=== PATIENT | male | born 1980 | race Caucasian/White ===

== ENCOUNTER → 2021-02-01 16:22 | Outpatient (CLI) | payer OTHER, BC, SELFPAY ==
--- NOTE | ~2021-02-01 | XR_ITS ---
XR knee RT min 4V 02/01/2021 18:26 Indication: Right knee pain Procedure: 4 views right knee Comparison: No prior studies Findings: No fracture, subluxation or dislocation. There is anatomic alignment. No significant joint effusion. Impression: 1: No significant bone or joint abnormality. Reviewed, dictated and finalized at location A. Impression: 1: No significant bone or joint abnormality.
== END ==
PROVIDERS: PCP Family Medicine; Visit Provider Physician Assistant
DX: M25.561 Pain in right knee (principal)
CPT/HCPCS: 73564

== ENCOUNTER 2023-04-24 12:31 | Emergency (ER) | payer OTHER, SELFPAY ==
--- NOTE | ~2023-04-24 | CT_ITS ---
EXAMINATION: CT brain wo con DATE: 04/24/2023 13:03 INDICATION: Patient fell off of truck, striking the back of the head. Loss of consciousness. Abrasion at the back of the head. TECHNIQUE: Computed tomography (CT) of the head was performed without intravenous contrast. The mA wa s adjusted according to patient size. Iterative reconstruction technique was employed. Exam dose: 60 5.33 mGy-cm total exam DLP. COMPARISON: None FINDINGS: High posterior midline small cephalohematoma is noted. No skull fracture is detected. No intracranial mass lesion or hemorrhage or cerebrovascular accident. No midline shift or mass effec t. Normal ventricular size. Normal rose-white matter differentiation. No subdural or epidural hematom a. Included mastoid air cells and paranasal sinuses are normally developed and aerated. IMPRESSION: High posterior midline small cephalohematoma; no skull fracture or acute intracranial fi nding Reviewed, dictated and finalized at Location A. Reviewed, dictated and finalized at location B. EL ARCHITECT IMPRESSION: High posterior midline small cephalohematoma; no skull fracture or acute intracranial finding
--- NOTE | ~2023-04-24 | CT_ITS ---
EXAMINATION: CT cervical spine wo con DATE: 04/24/2023 13:04 INDICATION: Head injury. Loss of consciousness. TECHNIQUE: Computed tomography (CT) of the cervical spine was performed without intravenous contrast. Automated exposure control and iterative reconstruction technique were employed. Exam dose: 419.66 mGy-cm total exam DLP. COMPARISON: None FINDINGS: C1 and C2 are normally aligned and the odontoid process is intact. No fracture or dislocati on or locked facet or prevertebral soft tissue swelling. Cervical interspaces are preserved. There is minimal degenerative spurring of the cervical spine.. IMPRESSION: Minimal cervical spine degenerative spurring; no fracture or dislocation or locked facet Reviewed, dictated and finalized at Location A. Reviewed, dictated and finalized at location B. BARBER IMPRESSION: Minimal cervical spine degenerative spurring; no fracture or dislo cation or locked facet
[2023-04-24 12:41] VITALS: BP 135/90; PULSE 78; RESP 18; TEMP 37.1; O2SAT 100
--- NOTE | 2023-04-24 12:52 | ED.GENADULT ---
HPI - General Adult General Chief complaint: Head Injury Stated complaint: head injury Time Seen by Provider: 04/24/23 12:42 History of Present Illness HPI narrative: Patient is a 42-year-old male who presents to the emergency department this afternoon after slip and fall resulting in head injury. Patient states that he was moving furniture into the back of a truck and when he jumped on the truck his foot slipped and he fell backward landing on the ground hitting his head. Patient is unsure if he lost consciousness or not, however, on the right to the emergency department states that there are certain parts of the incident where he does not remember. Patient denies any chest pain, shortness of breath, nausea, vomiting, abdominal pain, dysuria, hematuria, constipation, diarrhea, melena, hematochezia, fevers or chills. Patient also denies any current headaches, dizziness, lightheadedness, blurry visions, focal weakness, numbness and or tingling. There are no other modifying, alleviating, or precipitating factors at this time. Related Data Home Medications Medication Instructions Recorded Confirmed No Home Medications 02/01/21 02/03/21 Allergies Allergy/AdvReac Type Severity Reaction Status Date / Time codeine Allergy Unknown Unknown Verified 02/01/21 15:38 Review of Systems Review of Systems: All systems are reviewed and are negative unless stated otherwise in the HPI. [facility] Family History Family History Father Family history of heart disease in male family member before age 55 Other Diabetes mellitus Social History Social History (Updated 02/01/21 @ 15:39 by Merissa [facility]) Smoking status: Never smoker Alcohol intake: never Exam Narrative: General: Alert, awake, afebrile, in no acute distress. HEENT: PERRL, no rhinorrhea, no post nasal drip, oropharynx clear, contusion to the back of the head with small abrasion. Neck: Trachea midline, no JVD, no lymphadenopathy, no midline cervical tenderness to palpation. Cardiovascular: Regular rate and rhythm, no murmurs, rubs or gallops, no peripheral edema. Respiratory: Clear to auscultation bilaterally, no tachypnea, no wheezing, no rhonchi, no rubs, no respiratory distress. Abdomen: Soft, nontender, nondistended, no rebound, no guarding, no peritoneal signs. Musculoskeletal: No joint swelling or deformity, normal muscle tone. Skin: No rashes or petechia, no signs of infection. Psychiatric: Alert and oriented, normal behavior and judgment for situation. Neurological: Alert and oriented to person, place, and time. Follows all commands. 5/5 motor strength bilateral upper and lower extremities, sensation intact bilateral upper and lower extremity, cranial nerves 2 through 12 grossly intact, no focal deficits, speech is clear and fluent. Course Vital Signs Vital signs: Vital Signs Temperature 98.7 F 04/24/23 12:41 Pulse Rate 78 04/24/23 12:41 Respiratory Rate 18 04/24/23 12:41 Blood Pressure 135/90 04/24/23 12:41 Pulse Oximetry 100 04/24/23 12:41 Oxygen Delivery Room Air 04/24/23 12:41 Temperature 98.7 F 04/24/23 12:41 Pulse Rate 65 04/24/23 13:19 Respiratory Rate 17 04/24/23 13:19 Blood Pressure 132/84 04/24/23 13:19 Pulse Oximetry 100 04/24/23 13:19 Oxygen Delivery Room Air 04/24/23 12:41 Medical Decision Making MDM Narrative Medical decision making narrative: The patient was evaluated by myself in the emergency department. History is obtained from patient who is an independent historian and who is present at bedside and physical exam was performed. External medical records were reviewed at this time. IV was established and pertinent tests were ordered. Imaging studies obtained included CT brain cervical spine without IV contrast which was independently interpreted by me revealing no acute process, which is pending final rad
--- NOTE | 2023-04-24 12:57 | PC.NURSE ---
Pt taken to CT at this time
--- NOTE | 2023-04-24 13:13 | PC.NURSE ---
pt returned to room 2
[2023-04-24 13:19] VITALS: BP 132/84; PULSE 65; RESP 17; O2SAT 100
[2023-04-24 13:39] VITALS: BP 141/91; PULSE 70; RESP 18; O2SAT 100
== END 2023-04-24 14:05 | disposition home or self-care (01) ==
PROVIDERS: Emergency Provider Emergency Medicine; PCP Family Medicine
DX: S06.0XAA Concussion with loss of consciousness status unknown, initial encounter (principal); V58.4XXA Person boarding or alighting a pick-up truck or van injured in noncollision transport accident, initial encounter
CPT/HCPCS: 70450; 72125; 99284; L0140

== ENCOUNTER 2024-07-31 13:06 | Emergency (ER) | payer OTHER, SELFPAY ==
[2024-07-31 13:18] VITALS: BP 115/67; PULSE 60; RESP 16; TEMP 36.6; O2SAT 100
--- NOTE | 2024-07-31 13:33 | ED_ITS ---
HPI - URI/Sore Throat General Chief Complaint: Upper Respiratory Infection Stated Complaint: SORE THROAT Time Seen by Provider: 07/31/24 13:33 Source: patient and RN notes reviewed Mode of arrival: ambulatory Limitations: no limitations History of Present Illness HPI Narrative: 43-year-old male presents with concern for sore throat. Reports symptoms started 1 week ago. He denies runny nose, stuffy nose, cough, fever, body aches, chills, sweats, headache, stomach ache. MD elicited complaint: sore throat Related Data Allergies Allergy/AdvReac Type Severity Reaction Status Date / Time codeine Allergy Unknown Unknown Verified 07/31/24 13:19 Review of Systems Review of Systems: CONSTITUTIONAL: Denies malaise, chills, sweats, or fever. EYES: Denies visual changes, redness, or discharge. ENT: Denies rhinorrhea, congestion, sinus pain, otalgia. Reports sore throat. CARDIOVASCULAR: Denies chest pain, palpitations, or edema. RESPIRATORY: Denies cough. Denies dyspnea. GASTROINTESTINAL: Denies abdominal pain, nausea, vomiting, diarrhea SKIN: Denies rash or itching. MUSCULOSKELETAL: Denies myalgia. NEUROLOGIC: Denies headache. All systems reviewed & are unremarkable except as noted in HPI and below PMFSH Family History Family History Father Family history of heart disease in male family member before age 55 Other Diabetes mellitus Social History Social History (Updated 04/30/23 @ 09:41 by Chantel Flores MA) Smoking status: Never smoker Alcohol intake: never Substance use: never Substance use type: marijuana Comments At time of signature, agree with nursing past medical, surgical, social and family history. There is no relevant family history pertinent to the presenting complaint Exam Narrative: GENERAL: Well-appearing, well-nourished, and in no acute distress. HEAD: Normocephalic EYES: PERRLA, conjunctivae clear ENT: Nares clear. Mucous membranes moist. TM pearly rose with sharp light reflex bilaterally; no tragal tenderness. Oropharynx erythematous without lesions. Tonsils not enlarged and without exudate, no drooling, no hoarseness, no trismus, uvula midline. NECK: Supple. No lymphadenopathy CHEST: Clear to auscultation, breath sounds equal. No wheezing, rhonchi, rales, or stridor. No respiratory distress, speaks in full sentences. HEART: Regular rate and rhythm. No murmur heard. SKIN: Warm, dry, no rash. NEURO: Alert and oriented x3. PSYCH: Normal mood and affect Course Course Emergency Course: Patient is aware of diagnosis, understands and agrees to treatment plan. Anticipatory guidance given. Patient agrees to follow-up as directed and is aware of reasons to seek care at the emergency department. Portions of this record may have been created with voice recognition software Level of Care: Express Care Visit Vital Signs Vital signs: Vital Signs Temperature 97.8 F 07/31/24 13:18 Pulse Rate 60 07/31/24 13:18 Respiratory Rate 16 07/31/24 13:18 Blood Pressure 115/67 07/31/24 13:18 Pulse Oximetry 100 07/31/24 13:18 Temperature 97.8 F 07/31/24 13:18 Pulse Rate 60 07/31/24 13:18 Respiratory Rate 16 07/31/24 13:18 Blood Pressure 115/67 07/31/24 13:18 Pulse Oximetry 100 07/31/24 13:18 Reviewed. MDM - URI/Sore Throat MDM Narrative Medical decision making narrative: Differential diagnosis considered: Peterson virus, strep pharyngitis, allergic rhinitis, upper respiratory tract infection, sinusitis, rhinosinusitis, nasopharyngitis. viral pharyngitis, otitis media, otitis externa, pneumonia, bronchitis, viral cough syndrome, viral syndrome, and influenza. Exam findings show no acute concerns or changes; patient is non-toxic appearing and is in no distress. Patient is appropriate for outpatient treatment and follow-up. Lab Data Attestation: I reviewed the patient's lab results. Critical Care Time Critical Care Time Critical Care Time: No Discharge Plan Discharge Clinical Impression: Acute streptococcal pharyngitis Patient Disposition: Home Condition: Stable Instructions: Antibiotic Form, Strep Throat (ED) Additional Instructions: -Take the medication as prescribed. Throw away the toothbrush after 24hours of antibiotic. -Eat and drink things that are easy to swallow, like tea or soup, or popsicles to suck on. -Oral rinses such as: Salt water gargles and/or may use topical anesthetic (eg. Chloraseptic spray) or lozenges to relieve dryness or throat pain). -Take Tylenol and ibuprofen as needed for pain and fever as directed. -Frequent hand washing or hand anthropology faculty member is one of the best ways to prevent spread of infection. -Follow up with primary care provider in 2-3 days if condition is not improving; or seek ER visit if you have trouble breathing, cannot drink enough fluids, have muffled voice, difficulty opening your mouth, or severe swelling. Patient Language: Chinese Prescriptions: New penicillin V potassium 500 mg tablet 500 mg PO Q12H 10 Days Qty: 20 0RF Follow-up/Referrals: PHYSICIAN,REGISTERED SAFETY ENGINEER [Primary Care Provider] - Time of Disposition: 13:37
[2024-07-31 13:45] LABS: EDSTREPNEGPOS1 Positive (Negative)
== END 2024-07-31 13:43 | disposition home or self-care (01) ==
PROVIDERS: Emergency Provider Nurse Practitioner
DX: J02.0 Streptococcal pharyngitis (principal)
CPT/HCPCS: 87880; 99213; G0463

== ENCOUNTER 2025-02-07 10:41 | Emergency (ER) | payer OTHER, SELFPAY ==
[2025-02-07 10:54] VITALS: BP 127/78; PULSE 53; RESP 16; TEMP 36.7; O2SAT 100
--- NOTE | 2025-02-07 11:15 | ED_ITS ---
HPI - Dental/Oral General Chief complaint: Upper Respiratory Infection Stated complaint: TONGUE PROBLEMS Time Seen by Provider: 02/07/25 11:05 Source: patient Mode of arrival: ambulatory Limitations: no limitations History of Present Illness HPI Narrative: Crow is a 44-year-old male patient presenting to the clinic today with complaints tongue problems for a couple months. He reports he has a fissure to his tongue and some skin changes to the top of his tongue. He is a tobacco/nicotine user. He is concerned that he may have thrush. Related Data Home Medications ?Medication ?Instructions ?Recorded ?Confirmed ?Last Taken ?Type No Home Medications 01/21/25 02/07/25 U nknown History Allergies Allergy/AdvReac Type Severity Reaction Status Date / Time No Known Allergies Allergy Verified 02/07/25 10:52 Review of Systems Review of Systems: Pertinent positives per HPI. Patient denies any fever, chills, rash, headache, visual changes, dizziness, cough, shortness of breath, chest pain, palpitations, nausea, vomiting, diarrhea, constipation, abdominal pain, or any urinary issues. [facility] Family History Family History Father Family history of heart disease in male family member before age 55 Other Diabetes mellitus Social History Social History Smoking status: Never smoker Alcohol intake: never Substance use: current Substance use type: marijuana Comments At the time of my signature, I reviewed and agree with the nursing past medical, surgical, social, and family history. There is no relevant family history pertinent to the patient complaint. Exam Narrative: General: Well-developed, well nourished, in no apparent distress Head: Normocephalic, atraumatic Eyes: Pupils equally round and reactive to light bilaterally, EOM intact, sclera and conjunctive clear, no discharge, lids normal Ears: TMs intact and clear, ear canals clear, no drainage, grossly hearing normal. Nose: Nares patent, no discharge, no inflammation, no sinus tenderness. Mouth: Oral pharynx without lesions or masses, good dentition, MMM. 1 cm tongue fissure with dermatological changes around the fissure. Neck: Supple, trachea midline, no enlargement of anterior or posterior cervical nodes, no thyroid masses or goiter palpable. Cardio: Regular rate and rhythm, s1 and s2 normal, no murmur appreciated. Resp: Clear to auscultation bilaterally, no rhonchi, rales, wheezing or rubs Course Course Emergency Course: Portions of this record may have been created with voice recognition software. Level of Care: Express Care Visit Vital Signs Vital signs: Vital Signs Temperature 36.7 C 02/07/25 10:54 Pulse Rate 53 L 02/07/25 10:54 Respiratory Rate 16 02/07/25 10:54 Blood Pressure 127/78 02/07/25 10:54 Pulse Oximetry 100 02/07/25 10:54 Temperature 36.7 C 02/07/25 10:54 Pulse Rate 53 L 02/07/25 10:54 Respiratory Rate 16 02/07/25 10:54 Blood Pressure 127/78 02/07/25 10:54 Pulse Oximetry 100 02/07/25 10:54 Vital signs reviewed MDM - Dental/Oral MDM Narrative Medical decision making narrative: At the time of visit patient is resting comfortably on the exam table. Patient appears to be nontoxic. Complaints tongue problems for a couple months. He reports he has a fissure to his tongue and some skin changes to the top of his tongue. He is a tobacco/nicotine user. He is concerned that he may have thrush. On exam patient has a approximately 1 cm tongue fissure with dermatological changes around the fissure. Plan: I suspect patient has a tongue fissure with some skin changes of the tongue. Recommend follow-up with dentist or assistant football coach for further evaluation-would likely need biopsies to rule out pre malignant or malignant pathology. Supportive measures were discussed with the patient and they voiced understanding discharge instructions and agrees to treatment plan. Return precautions reviewed Differential Diagnosis Differential diagnosis: Likely gingival abscess, dental caries, toothache, dental abscess, fracture of tooth and aphthous ulcer Discharge Plan Discharge Clinical Impression: Fissure of tongue, Disorder of skin and mucous membrane of mouth, lips, and tongue Patient Disposition: Home Condition: Stable Instructions: Antibiotic Form Additional Instructions: You have a tongue fissure with some mucous membranes changes to the tongue. Recommend discontinuing any tobacco or nicotine. Increase fluids and stay well hydrated My apply topical Orajel if the area is painful Follow-up with your dentist or assistant football coach for further evaluation-may need biopsy to rule out any premalignant or malignant cancer. Patient Language: Armenian Prescriptions: No Action No Home Medications Follow-up/Referrals: Meche Fernandez MD [Primary Care Provider, [facility]] Time of Disposition: 11:17 Quality NIHSS Nursing Documentation ED NIHSS nursing documentation: reviewed/agree
== END 2025-02-07 11:19 | disposition home or self-care (01) ==
PROVIDERS: Emergency Provider Nurse Practitioner Family; PCP Family Medicine
DX: K14.5 Plicated tongue (principal); K14.9 Disease of tongue, unspecified
CPT/HCPCS: 99211; G0463

== ENCOUNTER 2025-03-22 00:33 | Day surgery (SDC) | payer OTHER, SELFPAY ==
[2025-03-17 10:28] VITALS: BMI 23.0
--- NOTE | 2025-03-17 10:32 | SUR.PREOP ---
[facility] has started construction of its new state of the art ER which will open Spring 2026. With this, we anticipate parking may be a challenge for some our surgical patients and families. Parking spaces are limited but are available for all Surgical, obstetrics, and ER patients sharing this lot. If you arrive and find you are having a hard time finding a parking space, please note that we understand the challenges, please drive around the hospital and park near Hospital Entrance 1. When you enter this entrance, you can ask a volunteer to direct or take you back to the surgical waiting area to check in. We appreciate everyone?s understanding of these expected challenges while we build for your future. Report to the Outpatient Waiting Room, entrance under the green pavilion located off [address], at time on date . Planned Procedure Time: .? Time changes happen often and if your time is changed the preop area will call you the afternoon before. - You and your visitor will be asked to self-screen and do not enter if you have any COVID symptoms. Please call surgeon if you need to reschedule. - A mask is optional within the hospital at this time. Patients may have clear liquids (water, carbonated beverages, clear teas, apple juice) until 3 hours prior to surgery with a maximum of 20 ounces. - No food from midnight until time of surgery and no smoking, or chewing tobacco (or any form of nicotine). No chewing gum, candy or mints. - Infants may have breast milk until 4 hours before surgery, formula 6 hours prior to surgery. - Children will be allowed to drink immediately following surgery.? If applicable, please bring a bottle or sippy cup to assist with drinking. Juice, water, soda, and popsicles are readily available.? For infants on formula, please bring formula the day of surgery.? Pacifiers are allowed. Take only the following medications with a SIP of water on the morning of surgery: DO NOT STOP ANY OF YOUR OTHER PRESCRIPTION MEDICATIONS PRIOR TO SURGERY EXCEPT THE FOLLOWING Hold all vitamins and supplements for 3 days per anesthesiologist. Medications to discontinue per physician Date to take last dose Please no make-up, nail italian, hairspray, perfume, deodorant, or body powder the day of surgery.? No jewelry (including any body piercings) or valuables the day of surgery, leave them at home.? Please take a shower or bath the night before, or the morning of, surgery with an antibacterial soap.? Wear comfortable, loose fitting clothing.? Children are encouraged to wear pajamas. - Jewelry must be removed prior to entering the operating room.? Rings and piercings that are not removed may be cut off. - The hospital will not accept responsibility for valuables.? - Please leave all valuables, including medications, at home the day of surgery. If you are going home after surgery, a licensed concrete mixer truck driver must drive you home.? - NO public transportation without another adult if you receive anesthesia. - We recommend that an adult stay with you for 24 hours following discharge. - We also recommend that you do not drive, make important decision, drink alcoholic beverages, or take any drugs that were not prescribed by your health care provider for at least 24 hours after your discharge time. For Pediatric surgeries, we recommend two adults accompany the child home. Follow any additional instructions given to you from your surgeon. Telephone instructions given to and asked if any additional questions and then verbalized understanding. Patient advised to call surgeon office or pre surgery nurse liaison [phone] if any additional questions.
--- NOTE | 2025-03-17 10:32 | SUR.PREOP ---
[facility] has started construction of its new state of the art ER which will open Spring 2026. With this, we anticipate parking may be a challenge for some our surgical patients and families. Parking spaces are limited but are available for all Surgical, obstetrics, and ER patients sharing this lot. If you arrive and find you are having a hard time finding a parking space, please note that we understand the challenges, please drive around the hospital and park near Hospital Entrance 1. When you enter this entrance, you can ask a volunteer to direct or take you back to the surgical waiting area to check in. We appreciate everyone?s understanding of these expected challenges while we build for your future. Report to the Outpatient Waiting Room, entrance under the green pavilion located off [address], at time 0700 on date 03/22/25. Planned Procedure Time: 0900.? Time changes happen often and if your time is changed the preop area will call you the afternoon before. - You and your visitor will be asked to self-screen and do not enter if you have any COVID symptoms. Please call surgeon if you need to reschedule. - A mask is optional within the hospital at this time. Patients may have clear liquids (water, carbonated beverages, clear teas, apple juice) until 3 hours prior to surgery with a maximum of 20 ounces. - No food from midnight until time of surgery and no smoking, or chewing tobacco (or any form of nicotine). No chewing gum, candy or mints. - Infants may have breast milk until 4 hours before surgery, formula 6 hours prior to surgery. - Children will be allowed to drink immediately following surgery.? If applicable, please bring a bottle or sippy cup to assist with drinking. Juice, water, soda, and popsicles are readily available.? For infants on formula, please bring formula the day of surgery.? Pacifiers are allowed. Take only the following medications with a SIP of water on the morning of surgery: n/a DO NOT STOP ANY OF YOUR OTHER PRESCRIPTION MEDICATIONS PRIOR TO SURGERY EXCEPT THE FOLLOWING Hold all vitamins and supplements for 3 days per anesthesiologist. Medications to discontinue per physician n/a Date to take last dose Please no make-up, nail nepalese, hairspray, perfume, deodorant, or body powder the day of surgery.? No jewelry (including any body piercings) or valuables the day of surgery, leave them at home.? Please take a shower or bath the night before, or the morning of, surgery with an antibacterial soap.? Wear comfortable, loose fitting clothing.? Children are encouraged to wear pajamas. - Jewelry must be removed prior to entering the operating room.? Rings and piercings that are not removed may be cut off. - The hospital will not accept responsibility for valuables.? - Please leave all valuables, including medications, at home the day of surgery. If you are going home after surgery, a licensed cart driver must drive you home.? - NO public transportation without another adult if you receive anesthesia. - We recommend that an adult stay with you for 24 hours following discharge. - We also recommend that you do not drive, make important decision, drink alcoholic beverages, or take any drugs that were not prescribed by your health care provider for at least 24 hours after your discharge time. For Pediatric surgeries, we recommend two adults accompany the child home. Follow any additional instructions given to you from your surgeon. Telephone instructions given to _patient_and asked if any additional questions and then verbalized understanding. Patient advised to call surgeon office or pre surgery nurse liaison [phone] if any additional questions.
[2025-03-22] VITALS (9 sets, daily range): BP systolic 109–143; BP diastolic 62–91; PULSE 55–98; RESP 12–16; TEMP 36.1–36.6; O2SAT 100
--- OUTSIDE RECORDS SUMMARY | 2025-03-22 00:35 | XMS_ITS | Clinical Summary ---
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 Social History Tobacco Use Types Packs/Day Years Used Date Smoking Tobacco: Never Personal Safety Answer Date Recorded Getting School Help Needed Not on file 06/06 Sex and Gender Information Value Date Recorded Sex Assigned at Not on file Legal Sex Male 2:13 PM CDT Gender Identity Not on file Sexual Orientation Not on file Last Filed Vital Signs Vital Sign Reading Time Taken Comments Blood Pressure 116/76 06/07/2023 8:46 AM TOBACCO SWEEPER Pulse 60 06/07/2023 8:46 AM TOBACCO SWEEPER Temperature 37 C (98.6 F) 06/07/2023 8:46 AM TOBACCO SWEEPER Respiratory Rate 20 06/07/2023 8:46 AM TOBACCO SWEEPER Oxygen Saturation 98% 06/07/2023 8:46 AM TOBACCO SWEEPER Inhaled Oxygen Concentration - - Weight 86.2 kg (190 lb) 06/07/2023 8:46 AM TOBACCO SWEEPER Height 182.9 cm (6') 06/07/2023 8:46 AM TOBACCO SWEEPER Body Mass Index 25.77 06/07/2023 8:46 AM TOBACCO SWEEPER Plan of Treatment Health Maintenance Due Date Last Done Comments Depression Screening 1982 Hepatitis C Screening 1982 Varicella Vaccines (1 of 2 - 13+ 2-dose series) 12/24/1995 Hepatitis B Screening 2000 Regular Well Visit/Exam 18-64 2000 HPV Vaccines (1 - 3-dose SCD M series) 2009 Covid-19 Vaccine (3 - 2024-2 6 season) 2024 03/23/2021, 12/01/2020 Influenza Vaccine (#1) 2024 DTaP/Tdap/Td Vaccine (2 - Td or Tdap) 04/30/2033 04/30/2023 Pneumococcal vaccine <65 Aged Out No longer eligible based on patient's age to complete this topic Insurance [employer] [place] [facility] CHO[facility] PL[facility] HMO/PPO Address: [address] [address] [place] [address] Care Teams Automotive Lube Technician Relationship Specialty Start Date End Date Meche Fernandez MD PCP - General 01/08/17
--- OUTSIDE RECORDS SUMMARY | 2025-03-22 00:35 | XMS_ITS | Clinical Summary ---
Author Organization [facility] Address [address] [place] [address] Care Team Providers Care Gas Generator Operator Name Role Phone Meche Fernandez MD Primary Care Provider [phone] Source Comments [facility],non-owned Affiliates and Associated Physician Practices is amultiple site organization consisting of ambulatory clinics and hospital sitesin [place], [place], [place] and [place]. This disclosure is being madepursuant to the Care Everywhere program and may not contain all information available regarding this patient. Last updated 17.[facility] Allergies Active Allergy Reactions Criticality Noted Date Comments Codeine GI Discomfort 08/15/2018 Medications * Be aware that medications may not be up to date on this document. Alwaysverify current medications with the patient. finasteride (PROPECIA) 1 MG tablet Take 1 mg by mouth once daily Active Active Problems No known active problems Family History Medical History Relation Name Comments Diabetes - Type 2 Mother Relation Name Status Comments Mother Social History Tobacco Use Types Packs/Day Years Used Date Smoking Tobacco: Never Smokeless Tobacco: Never Sex and Gender Information Value Date Recorded Sex Assigned at Not on file Legal Sex Male 5:52 PM CDT Gender Identity Not on file Sexual Orientation Not on file Last Filed Vital Signs Vital Sign Reading Time Taken Comments Blood Pressure 116/74 10/26/2020 6:44 PM CDT Pulse 70 10/26/2020 6:44 PM CDT Temperature 36.8 C (98.2 F) 10/26/2020 6:44 PM CDT Respiratory Rate 16 10/26/2020 6:44 PM CDT Oxygen Saturation 97% 10/26/2020 6:44 PM CDT Inhaled Oxygen Concentration - - Weight 79.4 kg (175 lb) 10/26/2020 6:44 PM CDT Height 182.9 cm (6') 10/26/2020 6:44 PM CDT Body Mass Index 23.73 10/26/2020 6:44 PM CDT Plan of Treatment Health Maintenance Due Date Last Done Comments LIPID TESTING 1982 HIV SCREENING 1997 HEPATITIS C SCREENING 12/18/2000 DTAP/TDAP/TD VACCINES (1 - Tdap) 2001 HEPATITIS B VACCINE (1 of 3 - 19+ 3-dose series) 2001 HPV VACCINE (1 - 3-dose SCDM series) 2009 DEPRESSION SCREENING 04/08/2024 COVID-19 VACCINE (1 - 2024-2 6 season) 2024 INFLUENZA VACCINE (#1) 2024 ZOSTER VACCINE (1 of 2) 2032 HIB VACCINE Aged Out No longer eligi ble based on patient's age to complete this topic MENINGOCOCCAL (Group B) VACC INE SHARED DECISION-MAKING Aged Out No longer eligibl e based on patient's age to complete this topic MENINGOCOCCAL GROUPS A/C/Y/W VACCINE Aged Out No longer eligible b ased on patient's age to complete this topic PNEUMOCOCCAL VACCINE Aged Out No long er eligible based on patient's age to complete this topic Insurance [facility] Care Teams Gas Generator Operator Relationship Specialty Start Date End Date Meche Fernandez MD [address] [place] [address] PCP - General Family Medicine 11/21/18
--- OUTSIDE RECORDS SUMMARY | 2025-03-22 00:35 | XMS_ITS ---
Author Organization Unknown ENCOUNTERS Encounter Performer Location Date Diagnosis Diagnosis Status Emergency [facility] [address] [place] [address] [id number] GIORGIO Pre Admit [facility] [address] [place] [id number] GI[place]GIO *Note: Encounters from your own facility or health system may be excluded. Allergies, Adverse Reactions, Alerts Allergen Type Severity Identification Date jairine drug allergy 3 [id number] Medications Name Date Quantity Days Supplied GPI Number
--- NOTE | 2025-03-22 07:56 | WPDANESEPPF ---
Anes - Initial Pre Proc Eval Procedure: Operation Date: 03/22/25 09:00 Proposed Procedures p Robotic Assisted Laparoscopic Right Inguinal Hernia Repair with Mesh, Possible Open - Arian Martines MD Date/Time: 03/22/25 07:56 Surgeon: Arian Martines MD Pre Op Diagnosis: Reducible Rt Ing Hernia Patient Data Age: 44 Gender: M Height: 1.83 m Weight: 77.11 kg Allergies Allergy/AdvReac Type Severity Reaction Status Date / Time No Known Allergies Allergy Verified 03/17/25 10:27 Home Medications ?Medication ?Instructions ?Recorded ?Confirmed ?Type No Home Medications 01/21/25 03/17/25 History Patient hx anesthesia problems: none Family hx anesthesia problems: none Results Review: All pre-operative results and documents have been reviewed as part of the pre-operative evaluation. [facility] Family History Family History Father Family history of heart disease in male family member before age 55 Other Diabetes mellitus Social History Social History Smoking status: Never smoker Alcohol intake: never Substance use: current Substance use type: marijuana Anes - Eval Final PreProcedure Day of Procedure 03/22/25 07:56 Patient weight: normal Heart: regular rate and rhythm Lungs: clear to auscultation Airway: Mallampati scale class II Neurological: alert and oriented Last oral intake: >/= 8 hours ASA classification: II Emergent: no Anesthetic plan: proceed Anesthesia type and monitoring: general ETT and standard monitoring Results Review: All pre-operative results and documents have been reviewed as part of the pre-operative evaluation. Informed Consent: The patient's anesthetic plan and its attendant risks and benefits were discussed with the patient/family/POA. Questions were solicited and answers provided to the satisfaction of the patient/family/POA.
[2025-03-22] MEDS: LACTATED RINGERS 1,000 ML 30 ML IV CONT ×2 (08:35→12:17)
[2025-03-22] MEDS: ACETAMINOPHEN 500 MG TABLET 1000 MG PO (08:35)
[2025-03-22] MEDS: KETOROLAC 15 MG/ML VIAL (*BKC) IV PUSH ×2 (08:35→11:40)
--- NOTE | 2025-03-22 09:03 | PM.IMHP2 ---
H&P: HPI History of Present Illness Date/Time: 03/22/25 09:03 Chief Complaint: Right inguinal hernia Narrative: Mr. Mcghee presents to the office at the request of Meche Fernandez MD for an evaluation of bulging in groin. Patient reports noticing approximately 2-3 months ago. Patient denies pain. Patient reports a reducible noticeable bulge in the right groin. Patient states he is not experiencing any problems voiding and denies testicular pain. Patient is tolerating a normal diet and having normal bowel movements. Patient denies nausea and vomiting. Review of Systems Review of Systems: The remainder of the review of systems to include constitutional, HEENT, cardiovascular, respiratory, GI, , integumentary, musculoskeletal, endocrine, immunologic, hematologic, psychiatric, and neurologic are all negative except for which is mentioned above in the HPI. [facility] Family History Family History Father Family history of heart disease in male family member before age 55 Other Diabetes mellitus Social History Social History Smoking status: Never smoker Alcohol intake: never Substance use: current Substance use type: marijuana Meds Home Medications and Allergies Home Medications ?Medication ?Instructions ?Recorded ?Confirmed ?Type No Home Medications 01/21/25 03/17/25 History Allergies Allergy/AdvReac Type Severity Reaction Status Date / Time No Known Allergies Allergy Verified 03/17/25 10:27 Exam Const: General: comfortable and no acute distress HENMT: Ears: TM's normal bilaterally Face/Nose/Sinus: Normal nares present Mouth: Yes moist mucous membranes Eyes: General: appearance normal, both eyes and all related structures Sclera: sclerae normal Pupils: Equal, round and reactive pupils present EOM: EOMs intact bilaterally Neck: Neck: supple and no JVD Thyroid: thyroid normal Resp: Effort & Inspection: normal respiratory effort Auscultation: clear to auscultation bilaterally Cardio: Rate: regular rate Rhythm: regular rhythm GI: GI Palp: Yes Soft to palpation Other: Small reducible umbilical hernia, defect less than 1 cm. Small reducible right inguinal hernia. No evidence of left inguinal hernia. No testicular masses. Skin: General skin exam: normal color and no rashes or lesions noted Neuro: General: gait normal Speech: normal speech Motor exam (neuro): 5/5 motor strength present throughout Sensory Exam: normal sensation Extrem: General: normal to inspection Psych: Mental Status: mental status grossly normal Affect: normal affect Assessment and Plan Assessment and plan (1) Reducible right inguinal hernia: Code(s): K40.90 - Unilateral inguinal hernia, without obstruction or gangrene, not specified as recurrent Status: Acute Assessment and Plan: I have reviewed office notes from Meche Fernandez MD prior to patient being seen in office. I have recommended a laparoscopic right inguinal hernia repair with mesh, Da Monica assisted, to be done under general anesthesia as an outpatient. The procedure was discussed in detail including the use of mesh, general description, and usual course of recovery. Risks of recurrence, infection, postop bleeding, prolonged postop pain, possible need to return to surgery were discussed as well. All questions were answered. Patient would like to proceed. Follow-up 2 weeks postoperatively.
--- NOTE | 2025-03-22 09:10 | WPDHPUPDATE1 ---
History and Physical Update Update Date/Time: 03/22/25 09:10 History and Physical has been reviewed, including an updated exam of the patient. There are NO changes in the patient's condition. Risks, benefits, and alternatives have been discussed and questions answered. Patient agrees to proceed with procedure.
[2025-03-22] MEDS: ceFAZolin 2 GM in SODIUM CHLORIDE 0.9% IV 50 ML 100 ML IVPB (09:22)
[2025-03-22] MEDS: LIDO 1%/EPINEPHRINE 1:100,000 20 ML VIAL 30 ML INFILTRATE (09:59)
[2025-03-22] MEDS: BUPivacaine HCL 0.5% 10 ML AMP 30 ML INFILTRATE (10:00)
--- NOTE | 2025-03-22 12:27 | W.PM.PROC2 ---
Procedure Note - Detailed Date of Procedure 03/23/25 Pre-op Diagnosis Reducible right inguinal hernia Post-op Diagnosis Same Procedure Performed Robotic assisted laparoscopic right inguinal hernia repair with Bard 3D mid weight mesh 02b91pm Surgeon Arian Martines MD [employer] [facility] Anesthesia General Indications Patient is a 44-year-old white male presented to the office with a complaint of a new right groin bulge. Minimally tender but the bulge is easily reducible. Examination revealed a reducible right inguinal hernia. No obvious evidence of left inguinal hernia on exam. Presents now for elective robotic assisted laparoscopic right inguinal hernia repair with mesh. Findings Patient had a moderately large direct defect. No evidence of indirect defect. He also had a small right femoral hernia component. No incarcerated contents. No evidence of left inguinal hernia. Description of Procedure After informed consent was obtained patient brought to the operating room was placed supine position general endotracheal anesthesia was administered. The abdomen and bilateral groin regions were then prepped and draped usual sterile fashion. Time-out was then performed correctly identifying the patient as well as procedure to be performed. Site marking was verified and he was given perioperative IV antibiotics. I 1st started by making a small curved incision in the upper edge of the umbilical fold. Dissection carried down through the dermis skin with a scalpel and then the subcutaneous tissues for the hemostat. Then with traction upwards on the anterior abdominal wall a Veress needle was placed into the abdomen through the very small umbilical defect. The abdomen is then insufflated to adequate pneumoperitoneum of 15mmHg of CO2. A 5mm Optiview port was then used to enter the abdomen through the small umbilical hernias. I then insufflated the abdomen to adequate pneumoperitoneum of 15mmHg of CO2. Then under direct visualization I placed additional 8mm robotic trocar port sites bilateral abdominal wall. The 5mm laparoscopic trocar port was switched out to an 8mm robotic trocar port. Looking down into the pelvis with the patient in 15degree Trendelenburg which allowed the small bowel to fall out the pelvis I inspected the groins and identified a right inguinal hernia which appeared to be a direct defect. There was no evidence of a left inguinal hernia visualized on laparoscopic evaluation. The [employer] robot was then brought to the patient's bedside and docked on the right side. Robotic ports were then attached the robotic arms and and the robotic instruments were advanced into the abdomen under direct visualization. I then scrubbed out the procedure sent down the robotic console to perform the dissection. I started a preperitoneal flap anterior medial to the right anterior suprailiac spine. This preperitoneal fat extended across the midline dividing the right side the medial umbilical ligament. I continued my dissection in this peritoneal plane dividing the wispy tissue with robotic hook cautery. I dissected down to the right pubic tubercle and dissected the bladder off of the pubic symphysis. I then extended the preperitoneal flap down to the internal ring and there was no evidence of a indirect defect. I then peritoneum out of the direct defect. There is no incarcerated contents within the direct defect. I carried dissection down into the space of Retzius for couple cm. I dissected across the midline to the right pubic tubercle and then dissected the fatty tissue and peritoneum off of the transversalis fascia to make sure there was no evidence of a direct defect on the left side. I then proceeded to dissect the peritoneum on the right side up onto the psoas muscle. Identified the vas deferens and testicular vessels and preserve these without injury. Dissection was carried proximal to the area where the vas deferens and testicular vessels diverged. There was a small cord lipoma which was dissected out of the internal ring and resected and removed from the abdomen. I also dissected some fat out of the femoral canal and confirmed there was a small right femoral hernia as well. Once I felt I had the peritoneal flap dissected proximally enough so that it would not roll up the proximal edge of the mesh when it was reapproximated I proceeded to close the defect utilizing a running 2-0 absorbable V lock suture imbricating the attenuated transversalis fascia and pseudo sac. I then measured the space and chose an extra large piece of Bard 3D mid weight mesh measuring [id number] oriented for the right groin. The mesh was then introduced into the abdomen and placed into the dissected space to cover the home myopectineal orifice. It covered the direct, indirect, and femoral spaces. The mesh was then secured to the tissues around the pubic tubercle utilizing interrupted 2-0 Vicryl sutures placed robotically. Laterally the mesh was secured to the muscle fibers anterior medial to the right anterior superior iliac spine. Additional suture was used to approximate the mesh to the closed direct defect. I then pulled the peritoneum up and the proximal edge of the mesh did not roll up with the peritoneum. The peritoneum was then closed utilizing a running absorbable 2-0 V lock suture. Hemostasis appeared to be good. I then had the robotic instruments removed from the abdomen and the Monica robot undocked from the patient's bedside. I then scrubbed back into the procedure and then proceeded to close the small umbilical defect with the port was located with interrupted 2-0 0 Ethibond sutures. The other 8mm robotic trocar ports which were off the midline was then closed utilizing 0 Vicryl sutures at the anterior rectus fascial layer. The incision irrigated sterile saline solution hemostasis was good. I then injected 1% lidocaine mixed with 0.5% Marcaine with some epinephrine around each of the incisions for local anesthetic effect. All the port site incisions were then closed utilizing a running subcuticular 4-0 Monocryl suture. The incisions were then cleaned the skin glue was applied. The patient tolerated the procedure well no complications. All sponges, needles, and instrument counts were correct at the end procedure. EBL was _10__cc. The patient was awakened and taken to recovery in stable and satisfactory condition. Implants Bard 3D mid weight mesh oriented for right groin measuring [id number] placed in the preperitoneal position. Estimated Blood Loss 10 Drains No Packing No Pathology None sent Complications No immediate complications Condition Stable Disposition PACU [facility] Billing Surgery - Charge Forward: Surgery Billing
== END 2025-03-22 15:32 | disposition home or self-care (01) ==
PROVIDERS: PCP Family Medicine; Visit Provider Surgery
PROC: 8E0Y4CZ Robotic Assisted Procedure of Lower Extremity, Percutaneous Endoscopic Approach (ICD-10-PCS; CPT 49650; principal; 2025-03-22 09:00)
DX: K40.90 Unilateral inguinal hernia, without obstruction or gangrene, not specified as recurrent (principal); F12.90 Cannabis use, unspecified, uncomplicated
CPT/HCPCS: 49650; S2900; 36415; 86850; 86900; 86901; J0690; A9270; C1781; J1100; J1885; J2004; J2250; J2405; J2704; J3010; J7120